=== PATIENT | female | born 1980 | race Caucasian/White ===

== ENCOUNTER 2017-08-18 09:51 | Emergency (ER) | payer OTHER ==
[~2017-08-18] VITALS: Ht 167.6 cm; Wt 95.0 kg
[~2017-08-18 09:51] MED LIST: AZAT50TA9 PO; DOCU-131 PO; ERGO500017 PO; IBUP-1221 PO; PRED20TA PO
[2017-08-18 10:51] LABS: HEMATOCRIT 23.3 % (34.6-47.8); HEMOGLOBIN 7.5 g/dL (11.7-16.4); WHITE BLOOD COUNT 9.4 x10^3/uL (3.4-10)
[2017-08-18 11:03] LABS: BLOOD UREA NITROGEN 10 mg/dL (7-18)
[2017-08-18 11:10] LABS: ASPARTATE AMINO TRANSFERASE 15 U/L (15-37)
[2017-08-18 13:47] VITALS: BP 157/77
[2017-08-18 14:05] VITALS: BP 142/78
[2017-08-18 14:22] VITALS: BP 142/78
[2017-08-18 14:38] VITALS: BP 147/76
[2017-08-18 16:21] VITALS: BP 142/80
[2017-08-18 16:25] VITALS: BP 142/80
== END 2017-08-18 16:27 | disposition home or self-care (01) ==
LOC: ED 13:15
DX: D59.9 Acquired hemolytic anemia, unspecified (principal)
CPT/HCPCS: 36415; 36430; 80053; 84703; 85025; 86850; 86870; 86900; 86922; 93005; 99285; P9016; 86923

== ENCOUNTER 2017-08-24 14:51 | Emergency (ER) | payer OTHER ==
[2017-08-24] VITALS (8 sets, daily range): BP systolic 112–123; BP diastolic 49–65
[~2017-08-24] VITALS: Ht 167.6 cm; Wt 93.1 kg
[2017-08-24 15:58] LABS: RAPID INFLUENZA A POSITIVE (Negative); RAPID INFLUENZA B Negative (Negative)
[2017-08-24] MEDS ORDERED: SODIUM CHLORIDE 0.9% 1,000ML IVBOLUS ONE (16:00)
[2017-08-24] MEDS ORDERED: SODIUM CHLORIDE FLUSH 10ML SYR IVF ONE (16:00)
[2017-08-24] MEDS ORDERED: ACETAMINOPHEN 500 MG TABLET PO ONE (16:00)
[2017-08-24 16:01] LABS: WHITE BLOOD COUNT 5.1 x10^3/uL (3.4-10)
[2017-08-24 16:03] LABS: HEMATOCRIT 19.4 % (34.6-47.8); HEMOGLOBIN 6.2 g/dL (11.7-16.4)
[2017-08-24 16:06] LABS: BLOOD UREA NITROGEN 10 mg/dL (7-18)
[2017-08-24] MEDS ORDERED: ACETAMINOPHEN 500 MG TABLET ONE (16:09)
[2017-08-25 00:51] VITALS: BP 135/77
[2017-08-25 01:07] VITALS: BP 135/77
== END 2017-08-25 01:26 | disposition home or self-care (01) ==
LOC: ED 16:16
DX: J09.X2 Influenza due to identified novel influenza A virus with other respiratory manifestations (principal); D59.1 Other autoimmune hemolytic anemias; Z90.710 Acquired absence of both cervix and uterus
CPT/HCPCS: 36415; 36430; 71020; 80048; 82040; 85025; 86850; 86870; 86880; 86900; 86922; 87400; 93005; 96360; 96361; 99285; J7030; P9016; 86923